=== PATIENT | female | born 1990 | race Caucasian/White ===

== ENCOUNTER 2018-03-14 11:19 | Emergency (ER) | payer BC, MEDICAID, OTHER ==
[~2018-03-14] VITALS: Ht 170.2 cm; Wt 91.0 kg
[2018-03-14 11:19] VITALS: BP 130/86
--- NOTE | 2018-03-14 11:19 | NUR ---
MARISEL from [facility] c/o delusional thoughts, flight of ideas, AO to self, reluctant to answer questions becoming agitated during assessment, denies SI/HI or drug & current EtOH use; no interventions [employer] pre EMS; pt restless & refused to change into gown at this time, NAD/sinus tach but VSS otherwise, pt in safe environment, WCTM.
--- NOTE | 2018-03-14 12:10 | NUR ---
pt refused all care- PA aware.
--- NOTE | 2018-03-14 12:47 | NUR ---
Patient given discharge instructions and they have confirmed that they understand the instructions. Patient ambulatory with steady gait. Addendum: 03/14/18 at 1251 by ARTUR Patient given discharge instructions and they have confirmed that they understand the instructions, refused to sign but took instructions with her. Patient ambulatory with steady gait.
== END 2018-03-14 12:49 | disposition home or self-care (01) ==
LOC: ED 12:30
DX: F22 Delusional disorders (principal); F23 Brief psychotic disorder; F31.9 Bipolar disorder, unspecified
CPT/HCPCS: 99284